=== PATIENT | female | born 1975 | race African-American/Black ===

== ENCOUNTER 2020-01-01 14:44 | Emergency (ER) | payer OTHER ==
--- NOTE | 2020-01-01 16:32 | ER ---
Nurse's Notes [facility] Name: Fredy Bradley Age: 44 yrs Sex: Female : 1975 Arrival Date: 01/01/2020 Time: 14:48 Bed Waiting Private MD: Shweta Haynes Diagnosis: Presentation: 12/31 15:12 Chief complaint: Patient states: Cyst under the R underarm for a while now, started ca1 hurting and burning last night. Coronavirus screen: Proceed with normal triage. Patient denies a cough. Patient denies shortness of breath or difficulty breathing. Patient denies measured and/or subjective temperature greater than 100.4F prior to today's visit. Patient denies travel on a cruise ship or to a country the [facility] currently lists as an affected area. Patient denies contact with known and/or suspected case of COVID-19. Ebola Screen: Patient negative for fever greater than or equal to 101.5 degrees Fahrenheit, and additional compatible Ebola Virus Disease symptoms Patient denies exposure to infectious person. Patient denies travel to an Ebola-affected area in the 21 days before illness onset. No symptoms or risks identified at this time. Initial Sepsis Screen: Does the patient meet any 2 criteria? No. Patient's initial sepsis screen is negative. Does the patient have a suspected source of infection? No. Patient's initial sepsis screen is negative. Risk Assessment: Do you want to hurt yourself or someone else? Patient reports no desire to harm self or others. Onset of symptoms was January 01, 2020. 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 - Social history:: Smoking status: Patient denies any tobacco usage or history of. Vital Signs: 15:12 BP 122 / 77; Pulse 76; Resp 15 S; Temp 98(TE); Pulse Ox 100% on R/A; Weight 83.91 kg ca1 (R); Height 5 ft. 3 in. (160.02 cm) (R); 15:12 Body Mass Index 32.77 (83.91 kg, 160.02 cm) ca1 ED Course: 14:48 Patient arrived in ED. mr 14:48 Shweta Haynes MD is Private Physician. mr 15:15 Triage completed. ca1 15:16 Arm band placed on right wrist. ca1 Administered Medications: No medications were administered Outcome: 16:31 Patient left the ED. ca1 Signatures: Alannah Silverio mr Martha Hunt, RN RN ca1
[2020-01-01 16:42] VITALS: BP 122/77; TEMP 98; O2SAT 100
--- OUTSIDE RECORDS SUMMARY | 2020-01-01 17:16 | XMS REPORT | Continuity of Care Document ---
:1975 Author Organization [facility]ly [facility] t Address [address] [place] [address] Care Team Providers Name Role Phone Unavailable Unavailable Unavailable Problems Condition Condition Condition Status Onset Resolution Last Treating Co mments Source Name Details Category Date Date Treatment Clinician Date Depression Depression Problem Active [facility] Anxiety Anxiety Problem [facility] Persistent Persistent Problem Active [facility] Allergies, Adverse Reactions, Alerts This patient has no known allergies or adverse reactions. Medications Ordered Filled Start Stop Current Ordering Indication Dosage Frequency Signature Comments Components Source Medication Medication Date Date Medication? Clinician (SIG) Name Name Albuterol Albuterol Yes Shweta [address] [facility] Sulfate HFA Sulfate HFA 8-03 Mill[facility] Clinics Procedures This patient has no known procedures. Encounters Start End Encounter Admission Attending Care Care Encounter Source Date/Time Date/Time Type Type Clinicians Facility Department ID 2019-11-19 2019-11-19 [facility] [id number] [facility] 14:28[facility]00 14:28:00 [facility] 2019-08-27 2019-08-27 [facility] [id number] [facility] 08:30:00 08:30:00 [facility] 2019-03-27 2019-03-27 [facility] [id number] [facility] 08:20:00 08:20:00 [facility] 2019-01-28 2019-01-28 Outpatient [facility]vest[facility] [id number] [facility] 18:12:00 18:12:00 [facility] ent Clinics 2019-01-28 2019-01-28 Outpatient Ambar Silvestre [id number] [facility] 15:20:00 15:20:00 [facility] ent Clinics Results This patient has no known results.
--- OUTSIDE RECORDS SUMMARY | 2020-01-01 17:16 | XMS REPORT ---
:1975 Author Organization [employer] Care Team Providers Name Role Phone Shweta Haynes Provider Role Unavailable Allergies No Known Allergies Problems Problem Type Condition Code Onset Dates Condition Statu s Problem Anxiety F41.9 Active Problem Depression F32.9 Active Problem Persistent cough R05 Active Medications No Known Medications Results No Known Results Summary Purpose [employer]Clinical[employer] Submission
== END 2020-01-01 16:31 | disposition left against medical advice (07) ==
LOC: ER 14:44
DX: L72.9 Follicular cyst of the skin and subcutaneous tissue, unspecified (principal); Z53.21 Procedure and treatment not carried out due to patient leaving prior to being seen by health care provider
CPT/HCPCS: 99281

== ENCOUNTER 2024-07-04 10:47 | Emergency (ER) | payer OTHER ==
--- OUTSIDE RECORDS SUMMARY | 2024-07-04 10:50 | XMS REPORT | Continuity of Care Document ---
Author Name Unknown Address [address] [place] [address] [facility] thconnect Address 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 Name Role Phone LAUREN MULLER Primary Care Physician Unavailab Angel Hernandez Attending Clinician Unavailable TERRANCE HILLMAN Attending Clinician Unavailable Terrance Hillman MD Attending Clinician [phone] Doctor Unassigned, [place] Attending Clinician U navailable BRIAN_GCBZW_Carroll_Jeffery Attending Clinician Unavailable MICKY MCKEON Attending Clinician Unavail able Provider, [facility] Attending Clinician Un available Unknown, Attending Attending Clinician Unavailab le UNKNOWN, ATTENDING Attending Clinician Unavailab TERRANCE Pride Admitting Clinician Unavailable BRIAN_GCBZW_Carroll_Jeffery Admitting Clinician Unavailable Payers Payer Name Policy Type Policy Number Effective Date Expirati on Date Source CHAYO DHILLON [facility] [id number] [facility] [id number] 2019 00:00:00 Ambetter from [facility] [id number] 2020 00:00:00 [facility] Ambetter from [facility] [id number] 2020 00:00:00 [facility] Medica C1 [id number] 2018 00:00:00 [facility] Problems Condition Name Condition Details Condition Category Status Onset Date Resolution Date Last Treatment Date Treating Clinician Comments Source Postmenopa usal bleeding Postmenopa usal Bleeding Problem Active 11-15 00:00: 00 [facility] Secondary amenorrhea Secondary Amenorrhea Problem Active 11-15 00:00: 00 [facility] Menopausal syndrome Menopausal Syndrome Problem Active 03-12 00:00: 00 [facility] General counseling and advice for contracept maral management General counseling and advice for contracept maral management Disease Active 10-21 00:00: 00 Overview: Formattin g of this note might be different from the original. 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 Pt refused. [facility] Anxiety Anxiety Problem Active [facility] [id number] Persistent cough Problem Active [facility] Depression Depression Problem Active [facility] [id number] Hypertrigl yceridemia Problem Active [facility] [id number] Migraine without aura and without status migrainosu s, not intractabl e Problem Active [facility] [id number] Tension headache Problem Active [facility] Allergic rhinitis Non-season al allergic rhinitis, unspecifie d trigger Problem [facility] Hearing loss Decreased hearing of right ear Problem [facility] [id number] Other obesity due to excess calories Problem [facility] [id number] Depression with anxiety Problem [facility] [id number] Body mass index [BMI] 34.0-34.9, adult Problem [facility] Allergies, Adverse Reactions, Alerts Allergy Name Allergy Type Status Severity Reaction(s) Onset Date Inactive Date Treating Clinician Comments Source NO KNOWN ALLERGIE S Drug Class Active [facility] Social History Social Habit Start Date Stop Date Quantity Comments Source Exposure to SARS-CoV-2 (event) Yes [facility] Sexual orientation U [facility] History of Tobacco Use [facility] Sex Assigned At [facility] Alcohol intake 2023-09-05 00:00:00 2023-09-05 00:00:00 0 /d [facility] History of Social function 2023-09-05 00:00:00 2023-09-05 00:00:00 [facility] Tobacco use and exposure 2012-10-21 00:00:00 2012-10-21 00:00:00 Smokeless tobacco non-user [facility] Smoking Status Start Date Stop Date Source Never Smoker [facility] Medications Ordered Medication Name Filled Medication Name Start Date Stop Date Current Medication? Ordering Clinician Indication Dosage Frequency Signature (SIG) Comments Components Source ketorolac (TORADOL) injection 30 mg 09-05 04:45: 00 09-05 03:43 :00 No 30mg 30 mg, Slow IV Push, ONCE, 1 dose, On Sun09/05/23 at 2345, Routine [facility] Naproxen 250 MG Naproxen 250 MG 2022-06 00:00: 00 No BID Naproxen 250 MG methylPREDN ISolone 4 MG methylPREDN ISolone 4 MG 2022-06 00:00: 00 No QD methylPRED NISolone 4 MG Naproxen 250 MG Naproxen 250 MG 2022-06 00:00: 00 No BID Naproxen 250 MG Naproxen 250 MG Naproxen 250 MG 2022-06 0-13 00:00: 00 No BID Naproxen 250 MG Naproxen 250 MG Naproxen 250 MG 2022-06 0-13 00:00: 00 No BID Naproxen 250 MG Naproxen 250 MG Naproxen 250 MG 2022-06 0-13 00:00: 00 No BID Naproxen 250 MG Naproxen 250 MG Naproxen 250 MG 2022-06 0-13 00:00: 00 No BID Naproxen 250 MG Naproxen 250 MG Naproxen 250 MG 2022-06 0-13 00:00: 00 No BID Naproxen 250 MG Tizanidine HCl 4 MG Tizanidine HCl 4 MG 5-12 00:00: 00 No 1{table t_as_ne eded} Tizanidine HCl 4 MG sulfamethox azole-trime thoprim (BACTRIM DS) 800-160 mg per tablet 01-01 00:00: 00 01-12 04:59 :00 No [id number] 1{tbl} Take 1 tablet by mouth 2 (two) times daily for 10 days. [facility] Albuterol Sulfate HFA Albuterol Sulfate HFA 01-25 00:00: 00 Yes Shweta Haynes 2 puffs as needed [facility] Albuterol Sulfate HFA 108 (90 Base) MCG/ACT Albuterol Sulfate HFA 108 (90 Base) MCG/ACT 01-25 00:00: 00 No 2{puffs _as_nee ded} QID Albuterol Sulfate HFA 108 (90 Base) MCG/ACT Albuterol Sulfate HFA 108 (90 Base) MCG/ACT Albuterol Sulfate HFA 108 (90 Base) MCG/ACT 01-25 00:00: 00 No 2{puffs _as_nee ded} QID Albuterol Sulfate HFA 108 (90 Base) MCG/ACT FLUoxetine HCl 20 MG FLUoxetine HCl 20 MG No 1{table t} QD FLUoxetine HCl 20 MG Cyclobenzap rine HCl 5 MG Cyclobenzap rine HCl 5 MG No 1{table t_at_be dtime_a s_neede d} QD Cyclobenza milagros HCl 5 MG tiZANidine HCl 4 MG tiZANidine HCl 4 MG No 1{table t_as_ne eded} tiZANidine HCl 4 MG FLUoxetine HCl 20 MG FLUoxetine HCl 20 MG No 1{table t} QD FLUoxetine HCl 20 MG Cyclobenzap rine HCl 5 MG Cyclobenzap rine HCl 5 MG No 1{table t_at_be dtime_a s_neede d} QD Cyclobenza milagros HCl 5 MG FLUoxetine HCl 20 MG FLUoxetine HCl 20 MG No 1{table t} QD FLUoxetine HCl 20 MG Cyclobenzap rine HCl 5 MG Cyclobenzap rine HCl 5 MG No 1{table t_at_be dtime_a s_neede d} QD Cyclobenza milagros HCl 5 MG FLUoxetine HCl 20 MG FLUoxetine HCl 20 MG No 1{table t} QD FLUoxetine HCl 20 MG Cyclobenzap rine HCl 5 MG Cyclobenzap rine HCl 5 MG No 1{table t_at_be dtime_a s_neede d} QD Cyclobenza milagros HCl 5 MG FLUoxetine HCl 20 MG FLUoxetine HCl 20 MG No 1{table t} QD FLUoxetine HCl 20 MG Cyclobenzap rine HCl 5 MG Cyclobenzap rine HCl 5 MG No 1{table t_at_be dtime_a s_neede d} QD Cyclobenza milagros HCl 5 MG FLUoxetine HCl 20 MG FLUoxetine HCl 20 MG No 1{table t} QD FLUoxetine HCl 20 MG Cyclobenzap rine HCl 5 MG Cyclobenzap rine HCl 5 MG No 1{table t_at_be dtime_a s_neede d} QD Cyclobenza milagros HCl 5 MG FLUoxetine HCl 20 MG FLUoxetine HCl 20 MG No 1{table t} QD FLUoxetine HCl 20 MG Cyclobenzap rine HCl 5 MG Cyclobenzap rine HCl 5 MG No 1{table t_at_be dtime_a s_neede d} QD Cyclobenza milagros HCl 5 MG fluoxetine 20 mg capsule TAKE 1 CAPSULE BY MOUTH ONCE DAILY fluoxetine 20 mg capsule TAKE 1 CAPSULE BY MOUTH ONCE DAILY No fluoxetine 20 mg capsule TAKE 1 CAPSULE BY MOUTH ONCE DAILY [facility] Climara Pro 0.045 mg-0.015 mg/24 hr transdermal patch Apply 1 patch every week by transdermal route for 30 days. Climara Pro 0.045 mg-0.015 mg/24 hr transdermal patch Apply 1 patch every week by transdermal route for 30 days. No 1patch( es) Q1W Climara Pro 0.045 mg-0.015 mg/24 hr transderma l patch Apply 1 patch every week by transderma l route for 30 days. [facility] Immunizations Ordered Immunization Name Filled Immunization Name Date Status Comments Source Rubella 2011-05-29 00:00:00 Completed [facility] Td 2008-05-25 00:00:00 Completed [facility] Td 1989-03-23 00:00:00 Completed [facility] TD, NOS Unknown Completed [facility] Rubella Unknown Completed [facility] SARS-COV-2 COVID-19 PFIZER VACCINE Unknown Completed [facility] TD, NOS Unknown Completed [facility] Rubella Unknown Completed [facility] SARS-COV-2 COVID-19 PFIZER VACCINE Unknown Completed [facility] Vital Signs Vital Name Observation Time Observation Value Comments S ource BMI (Body Mass Index) 2024-03-07 00:00:00 34.5 kg/m2 [facility] Body Weight 2024-03-07 00:00:00 195 [lb_av] [facility] BP Systolic 2024-03-07 00:00:00 132 mm[Hg] [facility] BP Diastolic 2024-03-07 00:00:00 76 mm[Hg] [facility] Height 2024-03-07 00:00:00 63 [in_i] [facility] Body Weight 2024-01-25 00:00:00 199 [lb_av] [facility] BP Systolic 2024-01-25 00:00:00 139 mm[Hg] [facility] Height 2024-01-25 00:00:00 63 [in_i] [facility] BP Diastolic 2024-01-25 00:00:00 83 mm[Hg] [facility] BMI (Body Mass Index) 2024-01-25 00:00:00 35.3 kg/m2 [facility] BP Diastolic 2024-01-18 00:00:00 75 mm[Hg] [facility] BP Systolic 2024-01-18 00:00:00 127 mm[Hg] [facility] Body Weight 2024-01-18 00:00:00 181.6 [lb_av] [facility] Systolic blood pressure 2023-09-06 04:00:00 130 mm[Hg] [facility] Diastolic blood pressure 2023-09-06 04:00:00 62 mm[Hg] [facility] Heart rate 2023-09-06 04:00:00 77 /min [facility] Respiratory rate 2023-09-06 04:00:00 16 /min [facility] Oxygen saturation in Arterial blood by Pulse oximetry 2023-09-06 04:00:00 100 /min [facility] Body temperature 2023-09-06 02:27:00 36.72 Alyson [facility] Body height 2023-09-06 02:27:00 162.6 cm [facility] Body weight 2023-09-06 02:27:00 90.719 kg [facility] BMI 2023-09-06 02:27:00 34.33 kg/m2 [facility] height 2023-05-01 10:10:00 62 [in_i] Commo n [facility] weight 2023-05-01 10:10:00 194.8 [lb_av[facility] 2023-05-01 10:10:00 98.0 [degF] Com mon [facility] bmi 2023-05-01 10:10:00 35.63 kg/m2 Comm on [facility] oximetry 2023-05-01 10:10:00 97 % Commo n [facility] respiratory rate 2023-05-01 10:10:00 16 /min [facility] blood pressure systolic 2023-05-01 10:10:00 126 mm[Hg] [facility] blood pressure diastolic 2023-05-01 10:10:00 84 mm[Hg] Common [facility] height 2023-04-06 10:00:00 62 [in_i] Commo n [facility] weight 2023-04-06 10:00:00 190.0 [lb_av] Co mmon [facility] temperature 2023-04-06 10:00:00 98.1 [degF] Com mon [facility] bmi 2023-04-06 10:00:00 34.75 kg/m2 Comm on [facility] oximetry 2023-04-06 10:00:00 98 % Commo n [facility] respiratory rate 2023-04-06 10:00:00 18 /min [facility] blood pressure systolic 2023-04-06 10:00:00 138 mm[Hg] [facility] blood pressure diastolic 2023-04-06 10:00:00 80 mm[Hg] [facility] height 2022-11-03 08:20:00 62 [in_i] Commo n [facility] weight 2022-11-03 08:20:00 176.8 [lb_av] Co mmon [facility] temperature 2022-11-03 08:20:00 97.5 [degF] Com mon [facility] bmi 2022-11-03 08:20:00 32.33 kg/m2 Comm on [facility] oximetry 2022-11-03 08:20:00 100 % Commo n [facility] respiratory rate 2022-11-03 08:20:00 17 /min [facility] blood pressure systolic 2022-11-03 08:20:00 129 mm[Hg] [facility] blood pressure diastolic 2022-11-03 08:20:00 79 mm[Hg] Common [facility] height 2022-10-06 09:10:00 62 [in_i] Commo n [facility] weight 2022-10-06 09:10:00 178 [lb_av] Comm on [facility] temperature 2022-10-06 09:10:00 96.8 [degF] Com [facility] bmi 2022-10-06 09:10:00 32.55 kg/m2 Comm on [facility] oximetry 2022-10-06 09:10:00 97 % Commo n [facility] respiratory rate 2022-10-06 09:10:00 16 /min [facility] blood pressure systolic 2022-10-06 09:10:00 122 mm[Hg] [facility] blood pressure diastolic 2022-10-06 09:10:00 77 mm[Hg] Common [facility] height 2022-08-28 16:40:00 62 [in_i] Commo n [facility] weight 2022-08-28 16:40:00 186.7 [lb_av] Co mmon [facility] temperature 2022-08-28 16:40:00 97.2 [degF] Com mon [facility] bmi 2022-08-28 16:40:00 34.14 kg/m2 Comm on [facility] oximetry 2022-08-28 16:40:00 99 % Commo n [facility] respiratory rate 2022-08-28 16:40:00 18 /min [facility] blood pressure systolic 2022-08-28 16:40:00 117 mm[Hg] [facility] blood pressure diastolic 2022-08-28 16:40:00 71 mm[Hg] Common [facility] height 2020-11-24 10:20:00 62 [in_i] Commo n [facility] weight 2020-11-24 10:20:00 195 [lb_av] Comm on [facility] temperature 2020-11-24 10:20:00 98 [degF] Comm on [facility] bmi 2020-11-24 10:20:00 35.66 kg/m2 Comm on [facility] height 2020-11-03 11:00:00 62 [in_i] Commo n [facility] weight 2020-11-03 11:00:00 195.2 [lb_av] Co mmon [facility] temperature 2020-11-03 11:00:00 97.2 [degF] Com mon [facility] bmi 2020-11-03 11:00:00 35.7 kg/m2 Commo n [facility] oximetry 2020-11-03 11:00:00 98 % Commo n [facility] respiratory rate 2020-11-03 11:00:00 17 /min [facility] blood pressure systolic 2020-11-03 11:00:00 133 mm[Hg] Common [facility] blood pressure diastolic 2020-11-03 11:00:00 81 mm[Hg] [facility] height 2020-07-02 10:20:00 62 [in_i] Commo n [facility] weight 2020-07-02 10:20:00 197 [lb_av] Comm on [facility] temperature 2020-07-02 10:20:00 97 [degF] Comm on [facility] bmi 2020-07-02 10:20:00 36.03 kg/m2 Comm on [facility] blood pressure systolic 2020-07-02 10:20:00 127 mm[Hg] Common [facility] blood pressure diastolic 2020-07-02 10:20:00 78 mm[Hg] Common [facility] height 2020-06-08 15:20:00 62 [in_i] Commo n [facility] weight 2020-06-08 15:20:00 198.3 [lb_av] Co mmon [facility] temperature 2020-06-08 15:20:00 97.4 [degF] Com [facility] bmi 2020-06-08 15:20:00 36.27 kg/m2 Comm on [facility] oximetry 2020-06-08 15:20:00 98 % Commo n [facility] respiratory rate 2020-06-08 15:20:00 16 /min [facility] blood pressure systolic 2020-06-08 15:20:00 129 mm[Hg] [facility] blood pressure diastolic 2020-06-08 15:20:00 77 mm[Hg] Common [facility] height 2020-04-28 09:00:00 62 [in_i] Commo n [facility] weight 2020-04-28 09:00:00 192.5 [lb_av] Co mmon [facility] temperature 2020-04-28 09:00:00 97.5 [degF] Com mon [facility] bmi 2020-04-28 09:00:00 35.2 kg/m2 Commo n [facility] oximetry 2020-04-28 09:00:00 100 % Commo n [facility] respiratory rate 2020-04-28 09:00:00 16 /min [facility] blood pressure systolic 2020-04-28 09:00:00 134 mm[Hg] Common [facility] blood pressure diastolic 2020-04-28 09:00:00 80 mm[Hg] [facility] Systolic blood pressure 2020-01-02 13:37:00 134 mm[Hg] [facility] Diastolic blood pressure 2020-01-02 13:37:00 80 mm[Hg] [facility] Heart rate 2020-01-02 13:34:00 85 /min [facility] 2020-01-02 13:34:00 37.11 Alyson [facility] Respiratory rate 2020-01-02 13:34:00 18 /min [facility] Body height 2020-01-02 13:34:00 160 cm [facility] Body weight 2020-01-02 13:34:00 83.915 kg [facility] BMI 2020-01-02 13:34:00 32.77 kg/m2 [facility] Oxygen saturation in Arterial blood by Pulse oximetry 2020-01-02 13:34:00 98 /min [facility] Systolic blood pressure 2020-01-02 13:37:00 134 mm[Hg] [facility] Diastolic blood pressure 2020-01-02 13:37:00 80 mm[Hg] [facility] Heart rate 2020-01-02 13:34:00 85 /min [facility] Body temperature 2020-01-02 13:34:00 37.11 Alyson [facility] Respiratory rate 2020-01-02 13:34:00 18 /min [facility] Body height 2020-01-02 13:34:00 160 cm [facility] Body weight 2020-01-02 13:34:00 83.915 kg [facility] BMI 2020-01-02 13:34:00 32.77 kg/m2 [facility] Oxygen saturation in Arterial blood by Pulse oximetry 2020-01-02 13:34:00 98 /min [facility] Procedures Procedure Date / Time Performed Performing Clinician Source MAMMO, screening, digital, bilateral 2024-03-07 00:00:00 [facility] Hysteroscopy Biopsy 2024-01-18 00:00:00 [facility] US, transvaginal 2023-11-16 00:00:00 [facility] XR CHEST 1 VW 2023-09-06 02:49:19 Terrance Hillman [facility] LIPASE 2023-09-06 02:33:00 [facility] TROPONIN I 2023-09-06 02:33:00 [facility] COMP. METABOLIC PANEL ([id number]) 2023-09-06 02:33:00 Terrance Hillman [facility] CBC WITH DIFF 2023-09-06 02:33:00 Terrance Hillman [facility] NOTICE OF PRIVACY PRACTICES 2023-09-06 02:19:05 Doctor Unassigned, [place] [facility] CONSENT/REFUSAL FOR DIAGNOSIS AND TREATMENT 2023-09-06 02:16:56 Doctor Unassigned, [place] [facility] Encounters Start Date/Time End Date/Time Encounter Type Admission Type Attending [facility] Care Facility Care Department Encounter ID Source 2023-12-19 09:15:00 Outpatient Dos Santos, Angel STLMLC ST[facility] [id number] [facility] 2023-10-15 13:51:00 Outpatient Dos Santos, Angel STLMLC STLMLC [id number] [facility] 2023-04-06 09:01:00 Outpatient Dos Santos, Angel STLMLC STLMLC [id number] [facility] 2023-04-04 08:21:00 Outpatient Dos Santos, Angel STLMLC STLMLC [id number] [facility] 2022-10-06 09:28:00 Outpatient Dos Santos, Angel STLMLC STLMLC [id number] [facility] 2022-10-04 09:02:00 Outpatient Dos Santos, Angel STLMLC STLMLC [id number] [facility] 2022-08-28 16:43:00 Outpatient Dos Santos, Angel STLMLC STLMLC [id number] [facility] 2022-08-25 10:11:01 Outpatient Dos Santos, Angel STLMLC STLMLC [id number] [facility] 2021-07-20 13:09:43 Outpatient Dos Santos, Angel STLMLC STLMLC [id number] [facility] 2021-07-20 13:09:26 Outpatient Dos Santos, Angel STLMLC STLMLC [id number] [facility] 2021-07-20 13:02:13 Outpatient Dos Santos, Angel STLMLC STLMLC [id number] [facility] 2021-07-20 12:34:23 Outpatient Dos Santos, Angel STLMLC STLMLC [id number] [facility] 2021-07-20 12:18:40 Outpatient Dos Santos, Angel ST[facility] ST[facility] [id number] [facility] 2021-07-20 12:13:19 [facility] [id number] [facility] 2021-07-20 12:01:52 Outpatient Dos [facility], [facility] [id number] [facility] 2021-07-20 12:01:42 [facility] [id number] [facility] 2024-03-07 00:00:00 2024-03-07 00:00:00 JOS Malhotra: [address], [place] [address] , Ph. [facility] - GC_GCBZW_Steph Menard* [id number] [facility] 2024-01-25 00:00:00 2024-01-25 00:00:00 JOS Malhotra: [address], [place] [id number] , Ph. [facility] - GC_GCBZW_Steph Menard* [id number] [facility] 2024-01-18 00:00:00 2024-01-18 00:00:00 Elizabeth Iverson MD: [address], [place] [address] , Ph. [facility] - GC_GCBZW_Steph Menard* [id number] [facility] 2023-11-23 00:00:00 2023-11-23 00:00:00 ABHINAV Wong: [address], [place] [address] , Ph. [facility] - GC_GCBZW_Steph Menard* [id number] [facility] 2023-11-16 00:00:00 2023-11-16 00:00:00 Elizabeth Iverson MD: [address], [place] [address] , Ph. [facility] - GC_GCBZW_Steph coppola [place]* [id number] [facility] 2023-11-14 00:00:00 2023-11-14 00:00:00 JOS Malhotra: [address], [place] [address] , Ph. [facility] - GC_GCBZW_Steph coppola [place]* [id number] [facility] 2023-09-05 21:23:00 2023-09-05 23:28:00 Emergency X TERRANCE HILLMAN [facility] ERT [id number] [facility] 2023-09-05 21:23:00 2023-09-05 23:28:00 Emergency Terrance Hillman [facility] [id number] [facility] 2023-09-05 00:00:00 2023-09-05 00:00:00 Orders Only Doctor Unassigned, [place] [facility] [id number] [facility] 2023-06-09 00:00:00 2023-06-09 00:00:00 Outpatient GC_GCBZW_Ro man_M [facility] PRIV [id number] [facility] 2023-05-12 00:00:00 2023-05-12 00:00:00 Outpatient GC_GCBZW_Ro man_M PRIV PRIV [id number] [facility] 2023-05-01 00:00:00 2023-05-01 00:00:00 OFFICE VISIT ESTAB PT LEVEL 3 STLMLC STLMLC [id number] [facility] 2023-04-14 00:00:00 2023-04-14 00:00:00 Outpatient GC_GCBZW_Ro man_M PRIV PRIV [id number] [facility] 2023-04-06 00:00:00 2023-04-06 00:00:00 OFFICE VISIT ESTAB PT LEVEL 4 STLMLC STLC [id number] [facility] 2023-04-02 00:00:00 2023-04-02 00:00:00 (TEL) STLMLC STLC [id number] [facility] 2023-03-06 00:00:00 2023-03-06 00:00:00 Outpatient GC_GCBZW_Ro man_M PRIV PRIV [id number] [facility] 2023-03-06 00:00:00 2023-03-06 00:00:00 Outpatient GC_GCBZW_Ro man_M PRIV PRIV [id number] [facility] 2023-02-15 00:00:00 2023-02-15 00:00:00 Outpatient GC_GCBZW_Ro man_M PRIV PRIV [id number] [facility] 2023-01-12 00:00:00 2023-01-12 00:00:00 Outpatient GC_GCBZW_Ro man_M PRIV PRIV [id number] [facility] 2023-01-08 00:00:00 2023-01-08 00:00:00 Outpatient GC_GCBZW_Ro man_M PRIV PRIV [id number] [facility] 2022-11-03 00:00:00 2022-11-03 00:00:00 OFFICE VISIT ESTAB PT LEVEL 3 STLMLC STLC [id number] [facility] 2022-11-02 00:00:00 2022-11-02 00:00:00 (TEL) STLMLC STLC [id number] [facility] 2022-10-06 00:00:00 2022-10-06 00:00:00 OFFICE VISIT ESTAB PT LEVEL 3 STLMLC STLMLC [id number] [facility] 2022-08-28 00:00:00 2022-08-28 00:00:00 (WELLNESS) Wellness Visit STLMLC STLMLC [id number] [facility] 2020-12-06 16:40:00 2020-12-06 16:40:00 Outpatient MICKY MERLOS [facility] [id number] [facility] 2020-12-03 10:20:00 2020-12-03 10:20:00 Outpatient R [facility] [id number] [facility] 2020-11-24 00:00:00 2020-11-24 00:00:00 OFFICE VISIT ESTAB PT LEVEL 2 STLMLC STLMLC [id number] [facility] 2020-11-13 09:05:00 2020-11-13 09:05:00 Outpatient R [facility] [id number] [facility] 2020-11-13 09:05:00 2020-11-13 09:05:00 Outpatient MICKY MRELOS [facility] [id number] [facility] 2020-11-03 00:00:00 2020-11-03 00:00:00 OFFICE VISIT ESTAB PT LEVEL 4 STLMLC STLMLC [id number] [facility] 2020-07-02 00:00:00 2020-07-02 00:00:00 OFFICE VISIT EST PT LEVEL 3 STLMLC STLMLC [id number] [facility] 2020-06-08 00:00:00 2020-06-08 00:00:00 PREV VISIT EST AGE 40-64 STLMLC STLMLC [id number] [facility] 2020-06-08 00:00:00 2020-06-08 00:00:00 (TEL) STLMLC STLMLC [id number] [facility] 2020-04-29 00:00:00 2020-04-29 00:00:00 (TEL) STLMLC STLMLC [id number] [facility] 2020-04-28 00:00:00 2020-04-28 00:00:00 OFFICE VISIT EST [facility] [id number] 2020-01-02 08:30:32 2020-01-02 08:50:32 Urgent Care Provider, [facility], Attending [facility] [id number] [facility] 2020-01-02 08:30:32 2020-01-02 08:50:32 Urgent Care Provider, [facility] [id number] 2020-01-02 08:20:00 2020-01-02 08:20:00 Outpatient R UNKNOWN, ATTENDING [facility] [id number] [facility] 2019-11-19 14:28:00 2019-11-19 14:28:[address] [facility] [id number] [facility] 2019-08-27 08:30:00 2019-08-27 08:30:[address] [facility] [id number] [facility] 2019-03-27 08:20:00 2019-03-27 08:20:[address] [facility] [id number] [facility] 2019-01-28 18:12:00 2019-01-28 18:12:[address] [facility] [id number] [facility] 2019-01-28 15:20:00 2019-01-28 15:20:[address] [facility] [facility] [id number] [facility] Results Test Description Test Time Test Comments Results Result Comments Source Tissue Pathology biopsy report 00:00:00 Clinical InformationPathologistA SourceA Gross DescriptionA DiagnosisA Comment [facility] 1 [id number] 03:39:21Exam: Chest (1 View), 09/05/2023 9:45 PM. Ordering Physician: TERRANCE HILLMAN. History: chest pain . Technique: One view of the chest. Comparison: None. Findings: No focal consolidation. No pneumothoraxor effusion. Normal size of thecardiac silhouette. No acute osseous finding.[facility] [id number] 03:16:18* Test Item Value Reference Range Interpretation Comme nts TROPONIN I (test code = 6283923019) 0.002 ng/mL <=0.034 WENDY (test code = WENDY) Reference (Normal) Range (defined by the 99th percentile reference limit): <= 0.034 ng/mL Note: Cardiac troponin begins to rise 3-4 hours after the onset of ischemia. Repeat in 4-6 hours if the sample was drawn within 3-4 hours of the onset of the symptom and found normal. Diagnosis of myocardial injury is made with acute changes in cTn concentrations with at least one serial sample above the 99th percentile upper reference limit (URL), taken together with the patient's clinical presentation. Biotin has been reported to cause a negative bias, interpret results relative to patient's use of biotin. Lab Interpretation (test code = 44496-2) Normal [facility]. METABOLIC PANEL ([id number])2023-09-06 03:05:15* Test Item Value Reference Range Interpretation Comme nts NA (test code = 4544129335) 140 mmol/L 135-145 K (test code = 2803316483) 3.6 mmol/L 3.5-5.0 CL (test code = 6372928393) 107 mmol/L 98-108 CO2 TOTAL (test code = 1666371723) 29 mmol/L 23-31 AGAP (test code = 7252948770) 4 2-16 BUN (test code = 3738243922) 11 mg/dL 7-23 GLUCOSE (test code = 8824423271) 114 mg/dL 70-110 H CREATININE (test code = 2160-0) 0.77 mg/dL 0.50-1.04 TOTAL BILI (test code = 6757832733) 0.4 mg/dL 0.1-1.1 CALCIUM (test code = 5439238177) 9.2 mg/dL 8.6-10.6 T PROTEIN (test code = 5277856753) 7.9 g/dL 6.3-8.2 ALBUMIN (test code = 0797985101) 4.5 g/dL 3.5-5.0 ALK PHOS (test code = 3791455281) 93 U/L 34-122 ALTv (test code = 1742-6) 27 U/L 5-35 AST(SGOT) (test code = 6874130213) 27 U/L 13-40 eGFR (test code = 44226-6) 94.7 mL/min/1.73m2 CKD-EPI eGFR (2020). Assuming creatinine has been stable day-to-day for at least three months, the eGFR indicates Category G1 (>= 90 mL/min/1.73 m2) Lab Interpretation (test code = 28570-3) Abnormal [facility] Center[facility], [id number] 03:04:55* Test Item Value Reference Range Interpretation Comme nts LIPASE (test code = 1880735704) 143 U/L 0-220 Lab Interpretation (test cod e = 96430-4) Normal [facility] WITH [id number] 02:50:52* Test Item Value Reference Range Interpretation Comme nts WBC (test code = 6690-2) 7.01 4.30-11.10 RBC (test code = 789-8) 4.55 3.93-5.25 HGB (test code = 718-7) 12.4 g/dL 11.6-15.0 HCT (test code = 4544-3) 37.4 % 35.7-45.2 MCV (test code = 787-2) 82.2 fL 80.6-95.5 MCH (test code = 785-6) 27.3 pg 25.9-32.8 MCHC (test code = 786-4) 33.2 g/dL 31.6-35.1 RDW-SD (test code = 28153-5) 39.2 fL 39.0-49.9 RDW-CV (test code = 788-0) 13.2 % 12.0-15.5 PLT (test code = 777-3) 219 166-358 MPV (test code = 83705-8) 8.9 fL 9.5-12.9 L NRBC/100 WBC (test code = 0307138235) 0.0 0.0-10.0 NRBC x10^3 (test code = 0782439407) See_Comment [Automated messa ge] The system which generated this result transmitted reference range: 10*3/?L. The reference range was not used to interpret this result as normal/abnormal. GRAN MAT (NEUT) % (test code = 770-8) 48.4 % IMM GRAN % (test code = 1868538682) 0.30 % LYMPH % (test code = 736-9) 41.2 % MONO % (test code = 5905-5) 9.0 % EOS % (test code = 713-8) 0.7 % BASO % (test code = 706-2) 0.4 % GRAN MAT x10^3(ANC) (test code = 1107609965) 3.39 10*3/uL 1.88-7.09 IMM GRAN x10^3 (test code = 5670177014) 0.00-0.06 LYMPH x10^3 (test code = 731-0) 2.89 10*3/uL 1.32-3.29 MONO x10^3 (test code = 742-7) 0.63 10*3/uL 0.33-0.92 EOS x10^3 (test code = 711-2) 0.05 10*3/uL 0.03-0.39 BASO x10^3 (test code = 704-7) 0.03 10*3/uL 0.01-0.07 Lab Interpretation (test code = 06262-7) Abnormal [facility]
[2024-07-04] MEDS ORDERED: KETOROLAC 30 MG/ML INJ ONE (11:49)
[2024-07-04] MEDS ORDERED: HYDROCODONE/APAP 5/325 MG TAB ONE (11:49)
[2024-07-04] MEDS ORDERED: dexAMETHasone 10 MG/ML VIAL ONE (11:49)
[2024-07-04] MEDS ORDERED: DIAZEPAM 5 MG TABLET ONE (11:50)
--- NOTE | 2024-07-04 12:31 | RAD REPORT ---
EXAMINATION: LUMBAR SPINE MULTIPLE VIEWS CLINICAL INDICATION: Female, 49 years old. PAIN TECHNIQUE: Multiple views of the lumbar spine were obtained. COMPARISON: No prior exam. FINDINGS: For purposes of this dictation, it is assumed that there are 5 lumbar type vertebral bodies. ALIGNMENT: There is normal alignment of the lumbar spine. BONES: Vertebral bodies are normal in height. No aggressive osseous lesions. DISCS: Disc heights are maintained. IMPRESSION: No acute lumbar spine abnormality.
[2024-07-04 13:25] LABS: Specific Gravity 1.023 (1.005-1.030); Urine Bacteria <20 /HPF (<20); Urine Bilirubin NEGATIVE (Negative); Urine Blood Negative (Negative); Urine Clarity Turbid (Clear); Urine Color Light-Yellow (Yellow); Urine Culture Reflex Order NOT NEEDED; Urine Glucose NEGATIVE (Negative); Urine Ketones NEGATIVE (Negative); Urine Micro Reflex YN NO BILL MICROSCOPIC; Urine Mucus Slight /HPF (None Seen); Urine Nitrite NEGATIVE (Negative); Urine Protein NEGATIVE (Negative); Urine RBC <5 /HPF (None Seen); Urine Urobilinogen Normal (Normal); Urine WBC <5 /HPF (<5); Urine WBC Clump Rare /HPF (None Seen)
--- NOTE | 2024-07-04 13:36 | ER ---
Nurse's Notes [facility] Name: Fredy Bradley Age: 49 yrs Sex: Female : 1975 Arrival Date: 07/04/2024 Time: 10:47 Bed 15 Private MD: Diagnosis: Low back pain Presentation: 07/04 11:15 Chief complaint: Patient states: Low back pain for 2 days. No trauma or falls. ll1 Coronavirus screen: Client denies travel out of the [place] in the last 14 days. At this time, the client does not indicate any symptoms associated with coronavirus-19. Ebola Screen: Patient denies travel to an Ebola-affected area in the 21 days before illness onset. Initial Sepsis Screen: Does the patient meet any 2 criteria? No. Patient's initial sepsis screen is negative. Does the patient have a suspected source of infection? No. Patient's initial sepsis screen is negative. Risk Assessment: Do you want to hurt yourself or someone else? Patient reports no desire to harm self or others. Onset of symptoms was July 03, 2024. 11:15 Method Of Arrival: Ambulatory 1 11:15 Acuity: NASIM 3 ll1 Historical: - Allergies: 11:15 No Known Allergies; ll1 - PMHx: 11:15 None; ll1 - PSHx: 11:15 None; ll1 - Immunization history:: Adult Immunizations up to date. - Social history:: Smoking status: Patient denies any tobacco usage or history of. Screenin:50 [facility] ED Fall Risk Assessment (Adult) History of falling in the last 3 months, aa5 including since admission No falls in past 3 months (0 pts) Confusion or Disorientation No (0 pts) Intoxicated or Sedated No (0 pts) Impaired Gait No (0 pts) Mobility Assist Device Used No (0 pt) Altered Elimination No (0 pt) Score/Fall Risk Level 0 - 2 = Low Risk Oriented to surroundings, Maintained a safe environment, Educated pt \T\ family on fall prevention, incl call for assistance when getting out of bed. Abuse screen: Denies threats or abuse. Nutritional screening: No deficits noted. Tuberculosis screening: No symptoms or risk factors identified. Assessment: 11:50 General: Appears uncomfortable, Behavior is calm, cooperative. Pain: Complains of pain aa5 in lumbar area, left low back and right low back Pain currently is 8 out of 10 on a pain scale. Quality of pain is described as crampy, sharp, Pain began 2-3 days ago. Is continuous, Aggravated by movement Noted to be resistant to movement. Neuro: Level of Consciousness is awake, alert, obeys commands, Oriented to person, place, time, situation. Cardiovascular: Patient's skin is warm and dry. Respiratory: Airway is patent Respiratory effort is even, unlabored, Respiratory pattern is regular, symmetrical. GI: No signs and/or symptoms were reported involving the gastrointestinal system. : No signs and/or symptoms were reported regarding the genitourinary system. EENT: No signs and/or symptoms were reported regarding the EENT system. Derm: Skin is dry, Skin is normal, Skin temperature is warm. Musculoskeletal: Range of motion: intact in all extremities. Injury Description: Pt denies known injury. 12:07 Reassessment: Pt to radiology . aa5 13:04 Reassessment: Patient states feeling better. Patient states symptoms have improved. aa5 Reassessment: Pt ambulatory to restroom at this time to provide urine specimen. . Pain: Pain currently is 4 out of 10 on a pain scale. Neuro: Level of Consciousness is awake, alert, obeys commands, Oriented to person, place, time, situation. Respiratory: Airway is patent Respiratory effort is even, unlabored, Respiratory pattern is regular, symmetrical. Derm: Skin is dry, Skin is normal, Skin temperature is warm. 14:10 Neuro: Level of Consciousness is awake, alert, obeys commands, Oriented to person, aa5 place, time, situation. Respiratory: Airway is patent Respiratory effort is even, unlabored, Respiratory pattern is regular, symmetrical. Derm: Skin is dry, Skin is normal, Skin temperature is warm. Vital Signs: 11:15 BP 115 / 83; Pulse 76; Resp 17; Temp 97.1; Pulse Ox 99% ; Weight 89.36 kg; Height 5 ft. ll1 3 in. ; Pain 8/10; 12:40 BP 120 / 80; Pulse 76; Resp 16 S; Pulse Ox 98% on R/A; Pain 5/10; aa5 14:00 BP 118 / 80; Pulse 75; Resp 16 S; Pulse Ox 98% on R/A; aa5 11:15 Body Mass Index 34.90 (89.36 kg, 160.02 cm) ll1 11:15 Pain Scale: Adult ll1 12:40 Pain Scale: Adult aa5 ED Course: 10:52 Patient arrived in ED. ra3 10:57 Iam Rossi DO is Attending Physician. ms3 11:16 Triage completed. ll1 11:16 Arm band placed on Patient placed in an exam room, on a stretcher. ll1 11:19 Génesis Amador, RN is Primary Nurse. aa5 11:50 Patient has correct armband on for positive identification. Bed in low position. Call aa5 light in reach. Side rails up X 1. Adult w/ patient. 12:25 Lumbar Spine (3 Views) XRAY In Process Unspecified. EDMS 13:08 Urine collected: clean catch specimen, sent to lab. aa5 13:35 Angel Dos Santos DO is Referral Physician. ms3 14:10 No provider procedures requiring assistance completed. Patient did not have IV access aa5 during this emergency room visit. Administered Medications: 12:05 Drug: Dexamethasone IM 10 mg IM once Route: IM; Site: left gluteus; aa5 12:40 Follow up: Response: No adverse reaction aa5 12:05 Drug: Diazepam PO 5 mg PO once Route: PO; aa5 12:40 Follow up: Response: No adverse reaction aa5 12:05 Drug: HYDROcodone-acetaminophen PO 5 mg-325 mg 1 tabs PO once Route: PO; aa5 12:40 Follow up: Response: No adverse reaction aa5 12:06 Drug: Ketorolac IM 30 mg IM once Route: IM; Site: right gluteus; aa5 12:40 Follow up: Response: No adverse reaction aa5 Medication: 13:50 VIS not applicable for this client. aa5 Outcome: 13:36 Discharge ordered by MD. ms3 14:10 Discharged to home ambulatory, with significant other, aa5 14:10 Condition: improved 14:10 Discharge instructions given to patient, Instructed on discharge instructions, follow up and referral plans. medication usage, Demonstrated understanding of instructions, follow-up care, medications, Prescriptions given X 2, 14:12 Patient left the ED. aa5 Signatures: Dispatcher [employer] EDMS Génesis Amador RN RN aa5 Ric Parker RN RN ll1 Iam Rossi DO DO ms3 Ellen Osborn ra3 Corrections: (The following items were deleted from the chart) 12:06 12:05 Dexamethasone IM 10 mg IM in left deltoid aa5 aa5 14:19 12:40 Pulse 76bpm; Resp 16bpm; Spontaneous; Pulse Ox 98% RA; Pain 11/01, Adult; aa5 aa5
--- NOTE | 2024-07-04 13:36 | EDPHYS ---
Physician Documentation [facility] Name: Fredy Bradlye Age: 49 yrs Sex: Female : 1975 Arrival Date: 07/04/2024 Time: 10:47 Bed 15 Private MD: ED Physician Iam Rossi HPI: 07/04 15:18 This 49 yrs old Black Female presents to ER via Ambulatory with complaints of Low Back ms3 Pain. 15:18 Fredy Bradley is a 49-year-old female who presents to the Emergency Department with ms3 lower back pain that began yesterday. She reports no urinary or fecal retention. Patient states her discomfort is currently an 8/10 and at that is worse was a 10/10. Patient states she has tried IcyHot and an old muscle relaxer she had at home without relief.. Historical: - Allergies: 11:15 No Known Allergies; ll1 - PMHx: 11:15 None; ll1 - PSHx: 11:15 None; ll1 - Immunization history:: Adult Immunizations up to date. - Social history:: Smoking status: Patient denies any tobacco usage or history of. ROS: 15:18 Constitutional: Negative for fever, and chills. Cardiovascular: Negative for chest ms3 pain, and palpitations. Respiratory: Negative for shortness of breath, cough, wheezing, and pleuritic chest pain, Abdomen/GI: Negative for abdominal pain, nausea, vomiting, diarrhea, and constipation, 15:18 Back: Positive for lower back pain, Exam: 15:18 Constitutional: This is a well developed, well nourished patient who is awake, alert, ms3 and in no acute distress. Head/Face: Normocephalic, atraumatic. Cardiovascular: Regular rate and rhythm with a normal S1 and S2. No gallops, murmurs, or rubs. Normal PMI, no JVD. No pulse deficits. Respiratory: Lungs have equal breath sounds bilaterally, clear to auscultation and percussion. No rales, rhonchi or wheezes noted. No increased work of breathing, no retractions or nasal flaring. Abdomen/GI: Soft, non-tender, with normal bowel sounds. No distension or tympany. No guarding or rebound. No evidence of tenderness throughout. 15:18 Back: pain, that is moderate, muscle spasm, is appreciated in the lumbar area, left low back and right low back, Vital Signs: 11:15 BP 115 / 83; Pulse 76; Resp 17; Temp 97.1; Pulse Ox 99% ; Weight 89.36 kg; Height 5 ft. ll1 3 in. ; Pain 8/10; 12:40 BP 120 / 80; Pulse 76; Resp 16 S; Pulse Ox 98% on R/A; Pain 5/10; aa5 14:00 BP 118 / 80; Pulse 75; Resp 16 S; Pulse Ox 98% on R/A; aa5 11:15 Body Mass Index 34.90 (89.36 kg, 160.02 cm) ll1 11:15 Pain Scale: Adult ll1 12:40 Pain Scale: Adult aa5 MDM: 11:09 Medical Screening Exam initiated ms3 15:18 Differential diagnosis: strain, Herniated disc UTI. Data reviewed: vital signs, nurses ms3 notes, lab test result(s), radiologic studies, and as a result, I will discharge patient. I considered the following discharge prescriptions or medication management in the emergency department Medications were administered in the Emergency Department. See MAR. Counseling: I had a detailed discussion with the patient and/or guardian regarding the historical points, exam findings, and any diagnostic results supporting the discharge/admit diagnosis, lab results, radiology results, the need for outpatient follow up, to return to the emergency department if symptoms worsen or persist or if there are any questions or concerns that arise at home. Special discussion: I discussed with the patient/guardian in detail that at this point there is no indication for admission to the hospital. It is understood, however, that if the symptoms persist or worsen the patient needs to return immediately for re-evaluation. ED course: Discussed labs and lumbar spine x-rays with the patient. Patient to follow-up with primary care physician 2 to 3 days. Patient understands agrees with plan. All questions were answered. Return precautions discussed include fevers, weakness, numbness, urinary or fecal incontinence, urinary or fecal retention, worsening symptoms, or any other concerns.. 07/04 11:10 Order name: Urinalysis W/Microscopic; Complete Time: 13:31 ms3 07/04 11:10 Order name: Lumbar Spine (3 Views) XRAY; Complete Time: 13:31 ms3 Administered Medications: 12:05 Drug: Dexamethasone IM 10 mg IM once Route: IM; Site: left gluteus; aa5 12:40 Follow up: Response: No adverse reaction aa5 12:05 Drug: Diazepam PO 5 mg PO once Route: PO; aa5 12:40 Follow up: Response: No adverse reaction aa5 12:05 Drug: HYDROcodone-acetaminophen PO 5 mg-325 mg 1 tabs PO once Route: PO; aa5 12:40 Follow up: Response: No adverse reaction aa5 12:06 Drug: Ketorolac IM 30 mg IM once Route: IM; Site: right gluteus; aa5 12:40 Follow up: Response: No adverse reaction aa5 Disposition Summary: 07/04/24 13:36 Discharge Ordered Notes: Location: Home ms3 Condition: Stable ms3 Diagnosis - Low back pain ms3 Followup: ms3 - With: Angel Dos Santos DO - When: 2 - 3 days - Reason: Recheck today's complaints Discharge Instructions: - Discharge Summary Sheet ms3 - Acute Back Pain, Adult ms3 Forms: - Medication Reconciliation Form ms3 - Antibiotic Education ms3 - Prescription Opioid Use ms3 - Patient Portal Instructions ms3 - Leadership Thank You Letter ms3 Prescriptions: - Ibuprofen 600 mg Oral Tablet - take 1 tablet ORAL route every 6 hours As needed take with food; 30 tablet; ms3 Refills: 0, Product Selection Permitted - Cyclobenzaprine 5 mg Oral Tablet - take 1 tablet ORAL route 3 times per day As needed; 15 tablet; Refills: 0, ms3 Product Selection Permitted Signatures: Dispatcher [employer] Génesis Parson RN RN aa5 Ric Parker RN RN ll1 Iam Rossi DO DO ms3
[2024-07-04 14:17] VITALS: BP 115/83; TEMP 97.1
[2024-07-04 14:18] VITALS: O2SAT 98
== END 2024-07-04 14:12 | disposition home or self-care (01) ==
LOC: ER 10:47
DX: M54.50 Low back pain, unspecified (principal)
CPT/HCPCS: 81001; 72100; 96372; 99284; J1100